=== PATIENT | male | born 1990 | race African-American/Black ===

== ENCOUNTER 2018-07-05 12:19 | Emergency (ER) | payer SELFPAY ==
[~2018-07-05] VITALS: Ht 182.9 cm; Wt 104.3 kg
[~2018-07-05 12:19] MED LIST: COLACE100 MG/10 ORAL; RANITIDINE HCL150 MG ORAL
[2018-07-05] MEDS ORDERED: VENTOLIN HFA18 GM INH (12:24)
--- NOTE | 2018-07-05 12:48 | Emergency Room Report ---
History of Present Illness General Chief Complaint: Male Urogenital Problems Source: Patient Present Illness HPI 27-year-old male patient presents ER complaining of penile discharge for the past day. Reports history of unprotected sex 4 days ago. Reports multiple partners without protection. Denies dysuria, hematuria. Denies penile rash or lesions. Denies testicular pain or swelling. Denies fever, chest pain, shortness of breath, abdominal pain, vomiting, back pain. requesting a STI evaluation. Allergies: Coded Allergies: No Known Allergies (Unverified , 01/08/14) Patient History Past Medical History: see triage record Reviewed Nursing Documentation: PMH: Agreed; PSxH: Agreed Nursing Documentation-PMH Hx Cardiac Problems: No Hx Hypertension: No Hx Pacemaker: No Hx Asthma: Yes Hx COPD: No Hx Diabetes: No Hx Cancer: No Hx Gastrointestinal Problems: No Hx Dialysis: No Hx Neurological Problems: No Hx Cerebrovascular Accident: No Hx Seizures: No Review of Systems All Other Systems: negative except mentioned in HPI Physical Exam Vital Signs Date Time Temp Pulse Resp B/P (MAP) Pulse Ox O2 Delivery O2 Flow Rate FiO2 07/05/18 12:21 98.2 64 18 119/59 100 Room Air Sp02 EP Interpretation: reviewed, normal General Appearance: well appearing, no apparent distress, alert, GCS 15, non- toxic Head: normocephalic, atraumatic Eyes: bilateral eye normal inspection, bilateral eye PERRL ENT: hearing grossly normal, normal pharynx, no angioedema, normal voice, uvula midline, moist mucus membranes Neck: full range of motion Respiratory: lungs clear, normal breath sounds, no rhonchi, no respiratory distress, no accessory muscle use, no wheezing, speaking full sentences Cardiovascular #1: regular rate, rhythm, no edema Gastrointestinal: non tender, soft, no mass, non-distended, no guarding, no rebound Genitourinary: no CVA tenderness, penis normal - unciorcumsized, scrotum normal Musculoskeletal: back normal, digits/nails normal, gait/station normal, normal range of motion, non-tender Neurologic: alert, oriented x3, responsive, motor strength/tone normal, sensory intact Skin: no rash Medical Decision Making PA Attestation Dr. Delcid is my supervising Physician whom patient management has been discussed with. Diagnostic Impression: Primary Impression: Encounter for assessment of sexually transmitted disease exposure ER Course Pt. presents to the ED c/o STI exposure. Ddx considered but are not limited to gonorrhea, chlamydia, cystitis, pyelonephritis, bacterial vaginosis, yeast infection. Vital signs: are WNL, pt. is afebrile ER COURSE: denies dysuria, hematuria, does not require UA at this time, low suspicion for STI. Provided patient with Rocephin and Azithromycin in the ER. Informed patient medications will cover for gonorrhea and chlamydia, needs further follow-up evaluation and possible treatment of other sexual transmitted infections. Advised to use safe sex practices including but not limited to use of condoms. Avoid sexual activity for the next 2 weeks. Instructed patient to follow up with STI clinic and/or PCP for STI evaluation and further treatment as necessary. provided with contact information for STI clinic. Instructed patient to inform partners of needs for evaluation and treatment of possible infections. ER precautions. DISCHARGE: Patient is resting comfortably, in no acute distress, nontoxic appearing, talking without difficulty. Patient to take medications as instructed Will provide with patient care instructions and any necessary prescriptions. Care plan and follow-up instructions provided. Patient instructed to follow-up with primary care provider in 3 - 5 days. Patient questions asked and answered. Patient reports understanding and agreement to treatment plan. ER precautions given. Patient instructed to return to ER immediately for any new or worsening of symptoms including but not limited to increasing SOB, persistent fever. - Please note that this Emergency Department Report was dictated using [employer] manager technology software, occasionally this can lead to erroneous entry secondary to interpretation by the dictation equipment. Last Vital Signs Date Time Temp Pulse Resp B/P (MAP) Pulse Ox O2 Delivery O2 Flow Rate FiO2 07/05/18 12:21 98.2 64 18 119/59 100 Room Air Disposition: HOME, SELF-CARE Condition: Stable Patient Instructions: Sexually Transmitted Disease, [id number] Additional Instructions: Followup with primary care provider and followup with STI clinic for further evaluation and treatment. Alert sexual partners for need for evaluation and treatment. Wear condoms during sex. Avoid sexual activity for 2 weeks. Drink plenty of fluids. Patient questions asked and answered. ER precautions given, patient instructed to return to ER immediately for any new or worsening of symptoms. Victor Manuel Montero Jul 05, 2018 12:48
[2018-07-05] MEDS ORDERED: Lidocaine 1% MPF 10mg/ml 5ml INJ ONE (13:00)
[2018-07-05] MEDS ORDERED: Azithromycin 250mg tab ORAL ONE (13:00)
[2018-07-05 13:01] VITALS: BP 120/63
[2018-07-05 13:03] VITALS: BP 119/59
== END 2018-07-05 13:03 | disposition home or self-care (01) ==
LOC: EMR 12:50
DX: R36.9 Urethral discharge, unspecified (principal); F17.200 Nicotine dependence, unspecified, uncomplicated; J45.909 Unspecified asthma, uncomplicated; T75.89XA Other specified effects of external causes, initial encounter; X58.XXXA Exposure to other specified factors, initial encounter; Y92.89 Other specified places as the place of occurrence of the external cause
CPT/HCPCS: 96372; 96374; 99284; J0696

== ENCOUNTER 2018-09-09 00:57 | Emergency (ER) | payer SELFPAY ==
[~2018-09-09] VITALS: Ht 185.4 cm; Wt 104.3 kg
[~2018-09-09 00:57] MED LIST changes: +VENTOLIN HFA18 GM INH
[2018-09-09] MEDS ORDERED: NKM (01:07)
[2018-09-09] MEDS ORDERED: Lidocaine 1% MPF 10mg/ml 5ml INJ ONE (01:45)
[2018-09-09] MEDS ORDERED: Azithromycin 250mg tab ORAL ONE (01:45)
--- NOTE | 2018-09-09 01:48 | Emergency Room Report ---
History of Present Illness General Chief Complaint: Male Urogenital Problems Source: Patient Present Illness HPI Is a 28-year-old male with a history of STD. He is sexually active with unprotected sex with multiple partners. He presents with dysuria and discharge. Onset this morning. He said he noticed a yellowish discharge. None right now. No fever chills but no testicular pain. Denies any other complaint. Allergies: Coded Allergies: No Known Allergies (Unverified , 01/08/14) Patient History Past Medical History: see triage record, old chart reviewed Past Surgical History: none Pertinent Family History: none Social History: Denies: smoking Immunizations: other Reviewed Nursing Documentation: PMH: Agreed; PSxH: Agreed Nursing Documentation-PMH Past Medical History: No History, Except For Hx Cardiac Problems: No Hx Hypertension: No Hx Pacemaker: No Hx Asthma: Yes Hx COPD: No Hx Diabetes: No Hx Cancer: No Hx Gastrointestinal Problems: No Hx Dialysis: No Hx Neurological Problems: No Hx Cerebrovascular Accident: No Hx Seizures: No Review of Systems Eye: Denies: eye pain, blurred vision ENT: Denies: ear pain, nose congestion, throat swelling Respiratory: Denies: cough, shortness of breath Cardiovascular: Denies: chest pain, palpitations Gastrointestinal: Denies: abdominal pain, diarrhea, nausea, vomiting Genitourinary: Reports: discharge, dysuria Musculoskeletal: Denies: back pain, joint pain Skin: Denies: rash Neurological: Denies: headache, numbness Endocrine: Denies: increased thirst, increased urine Hematologic/Lymphatic: Denies: easy bruising All Other Systems: negative except mentioned in HPI Physical Exam Vital Signs Date Time Temp Pulse Resp B/P (MAP) Pulse Ox O2 Delivery O2 Flow Rate FiO2 09/09/18 01:04 98.4 74 16 116/55 100 Room Air vitals normal Sp02 EP Interpretation: reviewed, normal General Appearance: well appearing, no apparent distress, alert Head: normocephalic, atraumatic Eyes: bilateral eye PERRL, bilateral eye EOMI ENT: hearing grossly normal, normal pharynx Neck: full range of motion, supple, no meningismus Respiratory: chest non-tender, lungs clear, normal breath sounds Cardiovascular #1: regular rate, rhythm, no murmur Gastrointestinal: normal bowel sounds, non tender, no mass, no organomegaly, no bruit, non-distended Genitourinary: other - No testicular tenderness. No penile discharge. is uncircumcised. Musculoskeletal: back normal, gait/station normal, normal range of motion Psychiatric: mood/affect normal Skin: warm/dry Medical Decision Making Diagnostic Impression: Primary Impression: Urethritis, unspecified ER Course Patient with symptoms consistent with urethritis. Rocephin and azithromycin given here. Recommend outpatient testing and treatment of partners. No evidence of systemic spread. Last Vital Signs Date Time Temp Pulse Resp B/P (MAP) Pulse Ox O2 Delivery O2 Flow Rate FiO2 09/09/18 01:04 98.4 74 16 116/55 100 Room Air Status: improved Disposition: HOME, SELF-CARE Condition: Stable Patient Instructions: Urethritis, Adult Additional Instructions: Have your partner is treated. Recommend outpatient testing for HIV, hepatitis, syphilis and other STDs. Return if worse. Jorge Martinez MD Sep 09, 2018 01:48
[2018-09-09 02:20] VITALS: BP 121/64
[2018-09-09 02:30] VITALS: BP 116/55
== END 2018-09-09 02:34 | disposition home or self-care (01) ==
LOC: EMR 01:21
DX: N34.2 Other urethritis (principal)
CPT/HCPCS: 96372; 99283; J0696